=== PATIENT | male | born 1995 | race Caucasian/White ===

== ENCOUNTER 2022-08-10 16:45 | Emergency (ER) | payer SELFPAY ==
[2022-08-10 16:51] VITALS: BP 139/77; PULSE 113; RESP 16; TEMP 37.3; O2SAT 98
--- NOTE | 2022-08-10 17:35 | ED.NAVMDI ---
HPI - Nausea/Vomiting/Diarrhea General Chief complaint: Nausea/Vomiting/Diarrhea Stated complaint: diarrhea Time Seen by Provider: 08/10/22 17:35 Source: patient, RN notes reviewed and old records reviewed Mode of arrival: ambulatory Limitations: no limitations History of Present Illness HPI Narrative: 27 year old male presents to [facility] with complaints of diarrhea X4 times starting this morning and one episode of nausea with vomiting also. Patient reports that he has no abdominal pain but has some abdominal cramping. Patient reports that he ate fish last night and wonders if he doesn't have food poisoning, Patient reports that he has not taking any OTC medications for his symptoms. Patient states that he had to call off this morning from work and needs work note. MD elicited complaint: nausea, vomiting, diarrhea and other (abdominal cramping) Onset (ago): day(s) ( started this morning) Description of vomiting: food contents Description of diarrhea: other (brown loose stool) Associated nausea: Yes Associated abdominal pain: No Exacerbating factors: eating Treatment prior to arrival: other (none) Related Data Allergies Allergy/AdvReac Type Severity Reaction Status Date / Time No Known Allergies Allergy Verified 08/10/22 17:26 Review of Systems Review of Systems: CONSTITUTIONAL: Denies fever, chills, or sweats. ENT: Denies rhinorrhea, congestion, sore throat, or otalgia. CARDIOVASCULAR: Denies chest pain, palpitations, or edema. RESPIRATORY: Denies cough or dyspnea. GASTROINTESTINAL: Reports no abdominal pain,positive for nausea, vomiting, and diarrhea some abdominal cramping with stools. GENITOURINARY: Denies dysuria or hematuria. SKIN: Denies rash or itching. MUSCULOSKELETAL: Denies back pain, joint pain, or myalgia. NEUROLOGIC: Denies headache, numbness, or weakness. All systems reviewed & are unremarkable except as noted in HPI and below PMFSH Past Medical History Medical History (Updated 08/11/22 @ 10:54 by Cherie Tirado NP) COVID-19 recovered Surgical History Surgical History (Updated 08/11/22 @ 10:54 by Cherie Tirado NP) H/O hernia repair when young Social History Social History (Updated 08/11/22 @ 10:56 by Cherie Tirado NP) Years smoked: 20 Smoking status: Current every day smoker Tobacco type: cigarettes Alcohol intake: former Substance use: current Substance use type: marijuana Other substance usage details: 2-3 times a week Gender identity (if verbalized by the patient): Male Comments At time of signature, agree with nursing past medical, surgical, social and family history. There is no relevant family history pertinent to the presenting complaint Exam Narrative: GENERAL: Well-appearing, well-nourished, unkept appearance,and in no acute distress. HEAD: Normocephalic, atraumatic. EYES: PERRLA, conjunctivae clear, and EOMI. ENT: Nares clear. Mucous membranes moist. Oropharynx without edema, erythema, or lesions. Tonsils not enlarged and without exudate. NECK: Supple. No lymphadenopathy CHEST: Speaks in full sentences. No respiratory distress. HEART: Regular rate and rhythm. ABDOMEN: Soft, flat, nondistended. No guarding, rebound tenderness, or rigid. No pulsatilla masses. Bowel sounds present in all four quadrants. No organomegaly. Negative Palomo?s sign. No periumbilical tenderness. No Supra public tenderness or distension. Good femoral pulses bilaterally. No hernia noted. No scars or surface trauma. cramping only with diarrhea, and some nausea with emesis X1 SKIN: Warm, dry, no rash. NEURO:? Alert and oriented x3. PSYCH: Normal mood and affect Course Course Emergency Course: Patient is aware of diagnosis, understands and agrees to treatment plan.? Anticipatory guidance given.? Patient agrees to follow-up as directed and is aware of reasons to seek care at the emergency department. Portions of this record may have been created with voice rec
== END 2022-08-10 17:50 | disposition home or self-care (01) ==
PROVIDERS: Emergency Provider Registered Nurse; PCP Family Medicine
DX: K52.9 Noninfective gastroenteritis and colitis, unspecified (principal); Z86.16 Personal history of COVID-19
CPT/HCPCS: 99213; G0463

== ENCOUNTER 2022-10-16 14:59 | Emergency (ER) | payer SELFPAY ==
[2022-10-16 15:10] VITALS: BP 120/81; PULSE 74; RESP 16; TEMP 36.8; O2SAT 100
--- NOTE | 2022-10-16 15:41 | ED.GENADULT ---
HPI - General Adult General Chief complaint: Unspecified Stated complaint: Blood Pressure Problem Source: patient Mode of arrival: ambulatory Limitations: no limitations History of Present Illness HPI narrative: PATIENT PRESENTS REQUESTING A LETTER TO CLEAR HIM TO DONATE PLASMA. HE WAS ATTEMPTING TO DO SO TODAY AND HE WAS TOLD THAT HIS PULSE RATE WAS TOO HIGH. HE PROVIDED ME WITH A LETTER INDICATING THAT HE HAD BEEN SEEN 3 TIMES IN APRIL OF LAST YEAR WITH HEART RATE ABOVE 100 BEATS PER MINUTE. PATIENT DOES ADMIT TO USING METHAMPHETAMINE BUT STATES HE HAS NOT USED ABOUT 3 MONTHS. HE SMOKES APPROXIMATELY HALF A PACK PER DAY. HE ALSO HAS UNDERLYING ANXIETY. AT TIMES HE CAN FEEL PALPITATIONS BUT DENIES ANY THE CURRENT TIME. DENIES ANY CHEST PAIN OR SHORTNESS OF BREATH. Related Data Allergies Allergy/AdvReac Type Severity Reaction Status Date / Time chlorpromazine Allergy Anaphylaxis Verified 10/16/22 15:06 [From Thorazine] Penicillins Allergy Unknown Verified 10/16/22 15:05 Review of Systems Review of Systems: CONSTITUTIONAL: DENIES FEVER, CHILLS, OR SWEATS. EYES: DENIES VISUAL CHANGES, REDNESS, OR DISCHARGE. ENT: DENIES RHINORRHEA, CONGESTION, SORE THROAT, OR OTALGIA. CARDIOVASCULAR: REPORTS INTERMITTENT PALPITATIONS, NOT THE PRESENT TIME. DENIES CHEST PAIN, OR EDEMA. RESPIRATORY: DENIES COUGH OR DYSPNEA. GASTROINTESTINAL: DENIES ABDOMINAL PAIN, NAUSEA, VOMITING, OR DIARRHEA. GENITOURINARY: DENIES DYSURIA OR HEMATURIA. SKIN: DENIES RASH OR ITCHING. MUSCULOSKELETAL: DENIES BACK PAIN, JOINT PAIN, OR MYALGIA. NEUROLOGIC: DENIES HEADACHE, NUMBNESS, DIZZINESS, OR WEAKNESS. PSYCHIATRIC: DENIES ANXIETY OR DEPRESSION. [facility] Past Medical History Medical History Anxiety COVID-19 recovered Substance abuse Surgical History Surgical History H/O hernia repair when young Family History Family History Father Family history non-contributory Social History Social History (Updated 10/16/22 @ 15:43 by FRANCES Avila, XIOMARA) Years smoked: 20 Smoking status: Current every day smoker Tobacco type: cigarettes Alcohol intake: former Substance use: current Substance use type: marijuana and amphetamines Other substance usage details: 2-3 times a week Gender identity (if verbalized by the patient): Male Exam Narrative: GENERAL: ADDITIONAL APPEARANCE. IN NO APPARENT DISTRESS HEAD: NORMOCEPHALIC, ATRAUMATIC. EYES: PERRLA AND EOMI. ENT: NARES CLEAR, NO RHINORRHEA OR EPISTAXIS. MUCOUS MEMBRANES MOIST. OVERALL POOR DENTITION. oROPHARYNX WITHOUT TONSILLAR HYPERTROPHY EXUDATE OR OTHER LESIONS. BILATERAL TMS PEARLY POON NONBULGING NECK: SUPPLE. NO ADENOPATHY OR MASSES. NO CAROTID BRUITS OR JVD CHEST: CLEAR TO AUSCULTATION. NO RESPIRATORY DISTRESS. NO WHEEZES RALES OR RHONCHI HEART: REGULAR RATE AND RHYTHM. NO MURMUR HEARD. NORMAL PERIPHERAL PULSES. ABDOMEN: SOFT, NONTENDER, NONDISTENDED, NORMAL ACTIVE BOWEL SOUNDS. EXTREMITIES: NORMAL RANGE OF MOTION. NO EDEMA. SKIN: WARM, DRY, NO RASH. NEURO: NO FOCAL DEFICITS. ALERT AND ORIENTED X3. PSYCH: NORMAL MOOD AND AFFECT. Course Course Emergency Course: THIS IS A 27-YEAR-OLD MALE REQUESTING MEDICAL CLEARANCE TO DONATE PLASMA. INFORMED HIM HE SHOULD ESTABLISH CARE WITH A PRIMARY CARE PROVIDER TO RECEIVE THIS CLEARANCE. HIS TACHYCARDIA COULD BE RELATED TO ANXIETY VERSUS ANEMIA VERSUS ELECTROLYTE DISTURBANCE VERSUS METHAMPHETAMINE ABUSE. HE WOULD LIKELY BENEFIT FROM SERUM LABS. I ADVISED HE AVOID SMOKING AND USING METHAMPHETAMINE. HE DOES NOT HAVE ANY PALPITATIONS, CHEST PAIN OR SOB. HE SHOULD GO TO THE ER IF HE DOES DEVELOP SYMPTOMS. PT IN AGREEMENT WITH PLAN OF CARE Level of Care: Express Care Visit Vital Signs Vital signs: Vital Signs Temperature 36.8 C 10/16/22
== END 2022-10-16 15:48 | disposition home or self-care (01) ==
PROVIDERS: Emergency Provider Nurse Practitioner; PCP Emergency Medicine
DX: Z00.00 Encounter for general adult medical examination without abnormal findings (principal); Z86.16 Personal history of COVID-19
CPT/HCPCS: 99211; G0463

== ENCOUNTER 2024-09-06 10:56 | Emergency (ER) | payer OTHER, SELFPAY ==
--- NOTE | ~2024-09-06 | XR_ITS ---
CHEST RADIOGRAPH, PA AND LATERAL CLINICAL HISTORY: cough and left sided back pain . COMPARISON: None available TECHNIQUE: PA and lateral views of the chest. FINDINGS Small hiatal hernia is present. The remainder of the cardiomediastinal silhouette is otherwise unremarkable. The lungs are clear. IMPRESSION: No focal infiltrate or effusion. Reviewed, dictated and finalized at location A. L FURNITURE PANEL COVERER
--- OUTSIDE RECORDS SUMMARY | 2024-09-06 10:58 | XMS_ITS | Referral Summary ---
Author Organization [facility] Address [address] [place] [address] Care Team Providers Care Passenger Car Upholsterer Apprentice Name Role Phone No, Physician Primary Care Provider [phone] Allergies Active Allergy Reactions Criticality Noted Date Comments Chlorpromazine Penicillins Medications montelukast (SINGULAIR) 10 mg tabletIndicatio ns:Seasonal Allergic Rhinitis Take 1 tablet (10 mg total) by mouth nightly 30 tablet 07/06/2020 Active benzonatate (TESSALON) 100 mg capsuleIndicati ons:Cough Take 1 capsule (100 mg total) by mouth 3 (three) times a day as needed for cough 15 capsule 07/06/2020 Active lidocaine viscous (XYLOCAINE) 2 % solution Take 10 mL by mouth every 3 (three) hours 1 Bottle 07/19/2020 Active clindamycin (CLEOCIN) 150 mg capsule Take 1 capsule (150 mg total) by mouth every 6 (six) hours 28 capsule 01/02/2024 Active ibuprofen (ADVIL,MOTRIN) 600 mg tablet Take 1 tablet (600 mg total) by mouth every 6 (six) hours as needed for pain 30 tablet 01/02/2024 Active Active Problems Problem Noted Date Diagnosed Date Normal cardiovascular exam 10/17/2022 History of tachycardia 10/17/2022 Immunizations Immunization Administration Dates Next Due Tdap 11/17/2023 Social History Tobacco Use Types Packs/Day Years Used Date Smoking Tobacco: Every Day Personal Safety Answer Date Recorded Have you ever been in or are you currently in a harmful physical or emotional relationship or is someone making you feel afraid or unsafe? 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 Gender Identity Not on file Sexual Orientation Not on file Last Filed Vital Signs Vital Sign Reading Time Taken Comments Blood Pressure 130/77 01/02/2024 1:33 AM CDT Pulse 107 01/02/2024 1:33 AM CDT Temperature 36.6 C (97.8 F) 01/02/2024 1:33 AM CDT Respiratory Rate 18 01/02/2024 1:33 AM CDT Oxygen Saturation 100% 01/02/2024 1:33 AM CDT Inhaled Oxygen Concentration - - Weight 89.8 kg (198 lb) 11/17/2023 6:41 PM CDT Height 193 cm (6' 4 ) 11/17/2023 6:41 PM CDT Body Mass Index 24.1 11/17/2023 6:41 PM CDT Plan of Treatment Not on file Insurance [facility] Care Teams Passenger Car Upholsterer Apprentice Relationship Specialty Start Date End Date No, Physician PCP - General 07/06/20
--- OUTSIDE RECORDS SUMMARY | 2024-09-06 10:58 | XMS_ITS | Clinical Summary ---
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 Gender Identity Not on file Sexual Orientation Not on file Obstetrics History Last Filed Vital Signs Vital Sign Reading [...] 11/17/2023 6:41 PM CDT Plan of Treatment Health Maintenance Due Date Last Done Comments Depression Screening 1994 Hepatitis C Screening 1994 Pneumococcal vaccine <65 (1 of 2 - PCV) 2000 Varicella Vaccines (1 of 2 - 13+ 2-dose series) 2007 Hepatitis B Screening 2012 Regular Well Visit/Exam 18-64 2012 Influenza Vaccine (#1) 2024 DTaP/Tdap/Td Vaccine (2 - Td or Tdap) 11/16/2033 11/17/2023 HPV Vaccines Aged Out No longer eligi ble based on patient's age to complete this topic Insurance [facility] Care Teams Press Tender Short Goods Relationship Specialty Start Date End Date No, Physician PCP - General 07/06/20
[2024-09-06 11:03] VITALS: BP 151/81; PULSE 109; RESP 18; TEMP 36.1; O2SAT 100
--- NOTE | 2024-09-06 12:12 | ED.GENADULT ---
HPI - General Adult General Chief complaint: Back Pain/Injury Stated complaint: Back Pain/Left Side Pain Source: patient Mode of arrival: ambulatory Limitations: no limitations and other History of Present Illness HPI narrative: Patient presents for evaluation of left-sided back pain. Symptom onset about a week ago. 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 Pain is constant with interval worsening. Pain at rest is 4/10 severity but increases to 10/10 with certain movements. He states that it feels like ?something is pushing in at the location where he is experiencing pain. He denies any respiratory or urinary symptoms. He has tried taking tylenol and ibuprofen. They seem to help but only minimally. He smokes about 1/5 ppd and does vape. No history of similar symptoms. Related Data Allergies Allergy/AdvReac Type Severity Reaction Status Date / Time chlorpromazine (From Allergy Anaphylaxis Verified 09/06/24 10:58 Thorazine) Penicillins Allergy Unknown Verified 09/06/24 10:58 Review of Systems Review of Systems: CONSTITUTIONAL: Denies fever, chills, or sweats. EYES: Denies visual changes, redness, or discharge. ENT: Denies rhinorrhea, congestion, sore throat, or otalgia. CARDIOVASCULAR: Denies chest pain, palpitations, or edema. RESPIRATORY: Denies cough or dyspnea. GASTROINTESTINAL: Denies abdominal pain, nausea, vomiting, or diarrhea. GENITOURINARY: Denies dysuria or hematuria. SKIN: Denies rash or itching. MUSCULOSKELETAL: Reports left-sided back pain. Denies joint pain, or myalgia. NEUROLOGIC: Denies headache, numbness, dizziness, or weakness. PSYCHIATRIC: Denies anxiety or depression. [facility] Past Medical History Medical History Substance abuse Anxiety COVID-19 recovered Surgical History Surgical History H/O hernia repair when young Family History Family History Father Family history non-contributory Social History Social History Smoking packs per day: 0.2 Smoking cigarettes per day: 4.0 Years smoked: 20 Smoking pack-years: 4.00 Smoking status: Current every day smoker Tobacco type: cigarettes Alcohol intake: former Substance use: current Substance use type: marijuana and amphetamines Other substance usage details: 2-3 times a week Gender identity (if verbalized by the patient): Male Exam Narrative: GENERAL: Well-appearing, well-nourished, and in no acute distress. HEAD: Normocephalic, atraumatic. EYES: PERRLA and EOMI. ENT: Nares clear, no rhinorrhea or epistaxis. Mucous membranes moist. Oropharynx without tonsillar hypertrophy exudate or other lesions. Bilateral TMs pearly colorado nonbulging NECK: Supple. No adenopathy or masses. No carotid bruits or JVD CHEST: Clear to auscultation. No respiratory distress. No wheezes rales or rhonchi HEART: Regular rate and rhythm. No murmur heard. Normal peripheral pulses. ABDOMEN: Soft, nontender, nondistended, normal active bowel sounds. BACK: No CVA tenderness. No tenderness in midline or paraspinous muscles of the spine. No tenderness over the posterior ribs. Pain is reproducible over the left posterior ribs with certain movements. EXTREMITIES: Normal range of motion. No edema. SKIN: Warm, dry, no rash. NEURO: No focal deficits. Alert and oriented x3. PSYCH: Normal mood and affect. Course Course Emergency Course: This is a 29-year-old male who presented for evaluation of left-sided back pain. Chest x-ray was negative. He was unable to provide us with a urine sample but low clinical suspicion for kidney stones. He has no flank or abdominal pain. He has no urinary symptoms. Pain is reproducible with movement. Will discharge with ibuprofen and flexeril. Application of warm moist heat may help. Epsom salt baths should help. Follow up with primary care provider. Go to the ER for worsening symptoms. Pt in agreement with plan of care. Level of Care: Express Care Visit Vital Signs Vital signs: Vital Signs Temperature 36.1 C L 09/06/24 11:03 Pulse Rate 109 H 09/06/24 11:03 Respiratory Rate 18 09/06/24 11:03 Blood Pressure 151/81 H 09/06/24 11:03 Pulse Oximetry 100 09/06/24 11:03 Oxygen Delivery Room Air 09/06/24 11:03 Temperature 36.1 C L 09/06/24 11:03 Pulse Rate 109 H 09/06/24 11:03 Respiratory Rate 18 09/06/24 11:03 Blood Pressure 151/81 H 09/06/24 11:03 Pulse Oximetry 100 09/06/24 11:03 Oxygen Delivery Room Air 09/06/24 11:03 Medical Decision Making Vital Signs Vital Signs: Vital Signs Temperature 36.1 C L 09/06/24 11:03 Pulse Rate 109 H 09/06/24 11:03 Respiratory Rate 18 09/06/24 11:03 Blood Pressure 151/81 H 09/06/24 11:03 Pulse Oximetry 100 09/06/24 11:03 Oxygen Delivery Room Air 09/06/24 11:03 Temperature 36.1 C L 09/06/24 11:03 Pulse Rate 109 H 09/06/24 11:03 Respiratory Rate 18 09/06/24 11:03 Blood Pressure 151/81 H 09/06/24 11:03 Pulse Oximetry 100 09/06/24 11:03 Oxygen Delivery Room Air 09/06/24 11:03 Imaging Data Radiologist's impression: CHEST RADIOGRAPH, PA AND LATERAL CLINICAL HISTORY: cough and left sided back pain . COMPARISON: None available TECHNIQUE: PA and lateral views of the chest. FINDINGS Small hiatal hernia is present. The remainder of the cardiomediastinal silhouette is otherwise unremarkable. The lungs are clear. IMPRESSION: No focal infiltrate or effusion. Discharge Plan Discharge Clinical Impression: Muscle strain Patient Disposition: Home, Self-Care Condition: Stable Instructions: Antibiotic Form, Muscle Strain (DC) Patient Language: Japanese Prescriptions: New ibuprofen 800 mg tablet 800 mg PO TID PRN (Reason: pain) Qty: 15 0RF cyclobenzaprine 10 mg tablet 10 mg PO TID PRN (Reason: muscle spasm) Qty: 15 0RF Follow-up/Referrals: Tomasz Funez MD [Physician] - Stand Alone Forms: Work/School Release IP Time of Disposition: 12:59
--- NOTE | 2024-09-06 12:13 | PC.NURSE ---
said unable to give ua spec. at this time. to xray.
== END 2024-09-06 13:02 | disposition home or self-care (01) ==
PROVIDERS: Emergency Provider Nurse Practitioner
DX: S29.012A Strain of muscle and tendon of back wall of thorax, initial encounter (principal); X58.XXXA Exposure to other specified factors, initial encounter; F17.210 Nicotine dependence, cigarettes, uncomplicated; F17.290 Nicotine dependence, other tobacco product, uncomplicated; F12.90 Cannabis use, unspecified, uncomplicated; F15.90 Other stimulant use, unspecified, uncomplicated; Z86.16 Personal history of COVID-19
CPT/HCPCS: 71046; 99213; G0463

== ENCOUNTER 2024-11-04 18:11 | Emergency (ER) | payer OTHER, SELFPAY ==
[2024-11-04 18:15] VITALS: BP 125/70; PULSE 100; RESP 20; TEMP 37.1; O2SAT 99
--- OUTSIDE RECORDS SUMMARY | 2024-11-04 18:15 | XMS_ITS | Clinical Summary ---
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 Gender Identity Not on file Sexual Orientation [...] Depression Screening 1994 Hepatitis C Screening 1994 Varicella Vaccines (1 of 2 - 13+ 2-dose series) 2007 Hepatitis B Screening 2012 Regular Well Visit/Exam 18-64 2012 Pneumococcal vaccine <65 (1 of 2 - PCV) 2013 Influenza Vaccine (Season Ended) 2025 DTaP/Tdap/Td Vaccine (2 - Td or Tdap) 11/16/2033 11/17/2023 HPV Vaccines Aged Out No longer eligi ble based on patient's age to complete this topic Insurance [facility] Care Teams Assistance Specialist Relationship Specialty Start Date End Date No, Physician PCP - General 07/06/20
--- OUTSIDE RECORDS SUMMARY | 2024-11-04 18:15 | XMS_ITS | Referral Summary ---
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
--- NOTE | 2024-11-04 19:08 | ED_ITS ---
HPI - Extremity Injury (Lower) General Chief Complaint: Extremity Injury, Lower Stated Complaint: Lft Ankle Injury Source: patient Mode of arrival: ambulatory Limitations: no limitations History of Present Illness HPI Narrative: 29 y/o male presented for c/o right lower leg swelling and pain. Onset yesterday. States he felt a sharp pain into the right ankle while standing. Pain is worse when bearing weight. He works washing dishes, and stands for long periods. Also reports he sits often. Denies any open wounds. Denies decreased ROM. Denies calf pain, chest pain, palpitations, sob, numbness, tingling or weakness. Related Data Home Medications ?Medication ?Instructions ?Recorded ?Confirmed ?Last Taken ?Type No Home Medications 11/04/24 11/04/24 Unknown History Allergies Allergy/AdvReac Type Severity Reaction Status Date / Time chlorpromazine (From Allergy Anaphylaxis Verified 11/04/24 18:28 Thorazine) Penicillins Allergy Unknown Verified 11/04/24 18:28 Review of Systems Review of Systems: per HPI All systems reviewed & are unremarkable except as noted in HPI and below PMFSH Past Medical History Medical History Substance abuse Anxiety COVID-19 recovered Surgical History Surgical History H/O hernia repair when young Family History Family History Father Family history non-contributory Social History Social History Smoking packs per day: 0.2 Smoking cigarettes per day: 4.0 Years smoked: 20 Smoking pack-years: 4.00 Smoking status: Current every day smoker Tobacco type: cigarettes Alcohol intake: former Substance use: current Substance use type: marijuana and amphetamines Other substance usage details: 2-3 times a week Gender identity (if verbalized by the patient): Male Comments At time of signature, I have reviewed and agree with nursing past medical, surgical, social and family history unless otherwise noted. Please see nursing chart for further information. There is no relevant family history pertinent to the presenting complaint Exam Narrative: GENERAL: Well-appearing, well-nourished, and in no acute distress. CHEST: Speaks in full sentences. No respiratory distress. HEART: Regular rate and rhythm. Normal and equal peripheral pulses. EXTREMITIES: RLE has normal strength and sensation, normal range of motion at ankle, endorses mild anterior ankle pain with dorsiflexion.Moderate swelling and erythema to anterior lower leg and lateral right ankle. Tender to anterior/lateral ankle and posterior lower leg. No ecchymosis, No open wounds or obvious deformity; alignment normal, pulse palpable and equal bilaterally, skin warm, dry, pink. Capillary refill less than 3 seconds. Gait with limp guarding right ankle. Negative Carly's sign, nontender calf. SKIN: Warm, dry, no rash. NEURO: Alert and oriented x3. PSYCH: Normal mood and affect Course Course Emergency Course: Patient is aware of diagnosis, understands and agrees to treatment plan. Anticipatory guidance given. Patient agrees to follow-up as directed and is aware of reasons to seek care at the emergency department. Portions of this record may have been created with voice recognition software Level of Care: Express Care Visit Vital Signs Vital signs: Vital Signs Temperature 98.8 F 11/04/24 18:15 Pulse Rate 100 11/04/24 18:15 Respiratory Rate 20 11/04/24 18:15 Blood Pressure 125/70 11/04/24 18:15 Pulse Oximetry 99 11/04/24 18:15 Oxygen Delivery Room Air 11/04/24 18:15 Temperature 98.8 F 11/04/24 18:15 Pulse Rate 100 11/04/24 18:15 Respiratory Rate 20 11/04/24 18:15 Blood Pressure 125/70 11/04/24 18:15 Pulse Oximetry 99 11/04/24 18:15 Oxygen Delivery Room Air 11/04/24 18:15 Reviewed Transfer Transfered to: [facility] Transportation: Other (private vehicle) Transfer rationale: Pt transferred to [facility]. Report called to Lara CROCKETT, Accepting physician Dr Serrato. Pt will be transferred via private vehicle. Aware of the risk of transfer including worsening condition, disability, injury and . Pt will remain NPO and go directly to the hospital. Pt is in stable condition. MDM - Extremity Injury (Lower) MDM Narrative Medical decision making narrative: Pt presented for unilateral leg swelling and pain, no apparent cellulitis or gout. Discussed differentials, aware of the risk of DVT. Pt is agreeable to ER transfer. Differential Diagnosis Differential diagnosis: Likely ankle sprain and strain and other (DVT, PVD, cellulitis, gout) Discharge Plan Discharge Clinical Impression: Leg swelling Patient Disposition: Acute Care Hospital Condition: Stable Patient Language: Sami Prescriptions: No Action No Home Medications Follow-up/Referrals: UNKNOWN,DOCTOR [Primary Care Provider] - Time of Disposition: 19:10
== END 2024-11-04 19:13 | disposition short-term general hospital (02) ==
PROVIDERS: Emergency Provider Nurse Practitioner Family
DX: M79.89 Other specified soft tissue disorders (principal); F17.210 Nicotine dependence, cigarettes, uncomplicated
CPT/HCPCS: 99212; G0463